=== PATIENT | male | born 1980 | race Caucasian/White ===

== ENCOUNTER 2016-12-09 03:03 | Emergency (ER) | payer OTHER ==
--- NOTE | 2016-12-09 05:29 | ED ORDER SUMMARY ---
..... Patient: DUANE GREENE OrderSheet [facility] VisitID: [id number] [place] [address] 36y, M Registration Date/Time: 12/09/2016 ORDER SHEET Weight: 74.8 kg (stated) Allergies: No Known Drug Allergy GENERAL ORDERS: UA-Culture if indicated Urgent (03:30 12/09/2016 DDavis R.N. per protocol) (Ack 3:32 CHagerty ER Truck Headlight Assembler) (3:40 DDavis R.N.) CMP Urgent (03:30 12/09/2016 DDavis R.N. per protocol) (Ack 3:32 CHagerty ER Truck Headlight Assembler) (3:40 DDavis R.N.) CBC w Diff Urgent (03:30 12/09/2016 DDavis R.N. per protocol) (Ack 3:32 CHagerty [facility] Truck Headlight Assembler) (3:40 DDavis R.N.) CT Abd/Pel wo Cont Urgent (03:42 12/09/2016 Georgie ELY) (Ack 3:48 [facility]agerty ER Truck Headlight Assembler) (3:56 RFay) MEDICATION ORDERS: IV FLUIDS: IV Saline Lock (03:30 12/09/2016 DDavis R.N. per protocol) (3:40 DDavis R.N.) Dilaudid IV 1 mg (NOW) (03:42 12/09/2016 Georgie ELY) (3:54 DDavis R.N.) Zofran IV 4 mg (NOW) (03:42 12/09/2016 Georgie ELY) (3:53 DDavis R.N.) Toradol IV 30 mg (NOW) (03:42 12/09/2016 Georgie ELY) (3:53 DDavis R.N.) IV NS : initial bolus 1000 mL (1000 mL/hr), then none - (NOW) (04:40 12/09/2016 Georgie ELY) (4:45 DDavis R.N.) ORDER SHEET NOTES: [Electronically signed by Pop Neri R.N. (05:29 12/09/2016)] [Electronically locked/signed by Pop Neri R.N. (05:29 12/09/2016)]
--- NOTE | 2016-12-09 05:29 | ED NURSING NOTES ---
Clinical Report - Nurses [facility] [place] [address] 12/09/2016 3:06 Patient: DUANE GREENE TRIAGE Triage time 03:23. Acuity: LEVEL 3. Chief Complaint: ABDOMINAL PAIN and NAUSEA. Alert. MADELAINE COMA SCORE: [place] Coma Scale: 15- eyes open spontaneously (4); best verbal response- oriented x 4 (5); best motor response- obeys commands (6). --03:27 Pop Neri R.N. 03:23 12/09/16. BP: 152/99. HR: 61 (regular). RR: 16 (regular and unlabored). O2 saturation: 100% on room air. Temp: 98.3 F (oral). Pain level now: 06/04. --03:27 Pop Neri R.N. Weight: 74.8 kg stated. Height/Length: 66 inches Per Patient. BMI: 26.6. --03:24 Pop Neri R.N. Medications None. --03:23 Pop Neri R.N. Allergies No Known Drug Allergy. --03:23 Pop Neri R.N. History Arrived by private vehicle. Historian: patient. Accompanied by family. This started today. Onset. (0000). SOCIAL HX: Never smoker. Occasional alcohol use. No drug use. ( denies SI/HI). SELF HARM ASSESSMENT: A self harm assessment was performed. The patient answered "no" to the question "Do you have thoughts of harming or killing yourself?" and "Are you here because you tried to hurt yourself?". FALL RISK ASSESSMENT: Fall risk assessment completed. No fall risk identified. NUTRITIONAL RISK ASSESSMENT: The nutritional risk assessment revealed no deficiencies. FUNCTIONAL ASSESSMENT: Functional assessment: no impairments noted. LEARNING NEEDS ASSESSMENT: The learning needs assessment revealed no barriers. SKIN INTEGRITY ASSESSMENT: Skin integrity risk assessment completed. No skin integrity risk identified. --03:27 Pop Neri R.N. PROBLEMS: no known problems. ADDITIONAL SURGERIES: no known surgeries. Interventions ID band on patient. To treatment room. --03:27 Pop Neri R.N. PHYSICAL ASSESSMENT Ambulatory to room. GENERAL / NEURO / PSYCH: Alert. Oriented X 4. HEENT: Mucous membranes are pink. RESPIRATORY: Respirations not labored. Breath sounds within normal limits. CVS: Normal sinus rhythm noted. Capillary refill less than 2 seconds. GI / : Abdomen soft. Abdominal tenderness. Bowel sounds within normal limits. ( Last BM "around midnight"). SKIN: Skin is warm and dry. --03:29 Pop Neri R.N. NURSING PROGRESS NOTES Patient gowned. Head of bed elevated. Two patient identifiers checked. Call light placed in reach. Side rails up x 1. Bed placed in lowest position. Brakes of bed on. Patient ready for evaluation- chart flagged. Patient waiting for evaluation. --03:28 Pop Neri R.N. 03:31 12/09/2016 Site #1 started via IV in the left antecubital space with an 20g angiocath, with aseptic technique and good blood return; one attempt. Blood drawn: rainbow set. Labeled in the presence of the patient and sent to the lab. Saline lock flushed with 10 mL saline. --03:40 Pop Neri R.N. 03:48 12/09/2016 Zofran (Ondansetron HCl) IVP 4 mg given over 1 minute(s) via site #1. Allergies verified and confirmed 5 rights. IV patency established. IV site checked: no pain, redness, or swelling. IV flushed thoroughly pre- and post-medication administration. IVP given by RN. --03:53 Pop Neri R.N. 03:50 12/09/2016 Toradol IVP 30 mg given over 1 minute(s) via site #1. Allergies verified and confirmed 5 rights. IV patency established. IV site checked: no pain, redness, or swelling. IV flushed thoroughly pre- and post-medication administration. IVP given by RN. --03:53 Pop Neri R.N. 03:52 12/09/2016 Dilaudid (HYDROmorphone HCl PF) IVP 1 mg given over 2 minute(s) via site #1. Allergies verified, confirmed 5 rights and sedative warning given to the patient and patient's metal products viewer. IV patency established. IV site checked: no pain, redness, or swelling. IV flushed thoroughly pre- and post-medication administration. IVP given by RN. --03:54 Pop Neri R.N. ( Patient states that the medicine is helping and he feels pain relief). --03:54 Pop Neri R.N. 04:44 12/09/2016 Started bag #1 1000 mL IV Fluids IV NS (Saline); at 1000 mL/hr over 1 hour(s) via site #1. Allergies verified and confirmed 5 rights. IV patency established. IV site checked: no pain, redness, or swelling. IV flushed thoroughly pre- and post-medication administration. Completed per protocol. --04:45 Pop Neri R.N. ( Dr. Valles discussed results and disposition with patient.). --04:46 Pop Neri R.N. 05:26 12/09/2016 Site #1 removed upon discharge. Manual pressure and bandage applied. --05:26 Pop Neri R.N. 05:26 12/09/2016 IV Fluids IV NS Discontinued: bag #1 completed. Total amount infused: 1000 mL. IV patency established. IV site checked: no pain, redness, or swelling. IV flushed thoroughly. --05:26 Pop Neri R.N. DISPOSITION / DISCHARGE Departure time: 05:27. Condition at departure: stable. No learning barriers present. Discharge instructions provided and reviewed with the patient. Reviewed warnings. Reviewed medication(s) side effects, precautions, dosing and course information. Prescription(s) given to the patient. Treatments reviewed. Reviewed referrals for followup. Work note given. Patient and spouse verbalized understanding. Written instructions provided in Greenlandic. The patient was discharged home and accompanied by spouse. He left the Emergency Department ambulatory and via private vehicle. Spouse driving. --05:28 Pop Neir R.N. 05:26 12/09/16. BP: 118/67 taken while lying. HR: 70. RR: 16 (regular and unlabored). O2 saturation: 100% on room air. Pain level now: 10/05. --05:28 Daron, Pop, R.N. Locked/Released at 12/09/2016 5:29 by Pop Neri R.N.
--- NOTE | 2016-12-09 05:29 | ED CLINICAL REPORT ---
Clinical Report - Physicians/Mid Levels [facility] [address] [place] [address] 12/09/2016 3:06 Patient: DUANE GREENE Time Seen: 03:39 Apr 2016. Arrived- By private vehicle. Historian- patient. CPT: ER phys charges level 4 (#194055). HISTORY OF PRESENT ILLNESS Chief Complaint: ABDOMINAL PAIN. It is described as "pain" and it is described as located in the right lower quadrant and right pelvis. At its maximum, severity described as moderate. When seen in the E.D., severity described as moderate. Modifying factors. Not worsened by anything. Not relieved by anything. 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 The patient has had nausea. No loss of appetite, vomiting or diarrhea. No recent travel. Similar symptoms previously: None. Recent medical care: The patient was seen recently at another facility in the emergency department (2 days ago). Seen for similar symptoms. Evaluation/treatment: sonogram. Diagnosis: unknown. REVIEW OF SYSTEMS No constipation, black stools, hematemesis, difficulty with urination or pain with urination. No urinary frequency, fever, sore throat, chest pain or difficulty breathing. No cough, joint pain, skin rash or chills. All systems otherwise negative, except as recorded above. PAST HISTORY See nurses notes. Problems: no known problems. Additional Surgeries: no known surgeries. Medications: None. Allergies: No Known Drug Allergy. SOCIAL HISTORY Never smoker. Occasional alcohol use. No drug use. ADDITIONAL NOTES The nursing notes have been reviewed. PHYSICAL EXAM Vital Signs: 12/09/2016 03:23 BP: 152/99. HR: 61. RR: 16. O2 saturation: 100%. Temp: 98.3 F. Pain level now: 06/04. Appearance: Alert. Appears to be in pain. Patient in moderate distress. Eyes: Eyes normal inspection. ENT: Pharynx normal. Neck: Normal inspection. CVS: Normal heart rate and rhythm. Heart sounds normal. Pulses normal. Respiratory: No respiratory distress. Breath sounds normal. Chest nontender. Abdomen: Soft and nontender. Bowel sounds normal. Back: Normal inspection. No CVA tenderness. Skin: Skin warm. Normal skin color. No rash. Extremities: Extremities exhibit normal ROM. No lower extremity edema. Neuro: Oriented X 3. No motor deficit. No sensory deficit. LABS, X-RAYS, AND EKG Abdominal CT: A urinary calculus is present (4 mm). Hydronephrosis. Abdominal CT performed without contrast. The study was interpreted by the radiologist and discussed with the radiologist. Laboratory Tests: UA-Culture if indicated: (JOSE: 12/09/2016 03:35) ( MsgRcvd 12/09/2016 03:52) Final results Test Result Flag Units (Reference) URINE COLOR YELLOW URINE APPEARANCE CLEAR URINE GLUCOSE NEGATIVE (NEGATIVE) URINE BILIRUBIN NEGATIVE (NEGATIVE) URINE KETONE 2+ (NEGATIVE) URINE SPECIFIC GRAVITY 1.025 (1.010-1.030) URINE PH 6.5 (5.0-8.0) URINE PROTEIN 1+ (NEGATIVE) URINE UROBILINOGEN 1.0 EU/dL (0.2-1.0) URINE NITRITE NEGATIVE (NEGATIVE) URINE BLOOD 3+ (NEGATIVE) URINE LEUK ESTERASE NEGATIVE (NEGATIVE) URINE RBC >100 rbc/hpf (0-1) URINE WBC 1-3 wbc/hpf (0-1) URINE EPITHELIAL CELLS 1-3 EPI/hpf (0-5) URINE BACTERIA NONE SEEN (NONE SEEN) URINE COMMENT CULT NOT INDICATED URINE CULTURES ARE SET-UP BASED ON THE FOLLOWING CRITERIA:POSITIVE NITRITEPOSITIVE LEUKOCYTE ESTERASEGREATER THAN 10 WHITE BLOOD CELLSMODERATE (2+) OR GREATER BACTERIA CBC w Diff: (JOSE: 12/09/2016 03:35) ( [facility] [place] 12/09/2016 03:48) Final results Test Result Flag Units (Reference) WHITE BLOOD COUNT 10.3 K/uL (4.5-11.5) RED BLOOD COUNT 4.79 M/uL (4.50-5.90) HEMOGLOBIN 14.9 gm/dL (13.5-17.5) HEMATOCRIT 45.0 % (41.0-53.0) MEAN CELL VOLUME 94 fL (80-100) MEAN CORPUSCULAR HGB 31 pg (26-34) MEAN CORPUSCULAR HGB CONC 33 g/dL (31-37) RED CELL DISTRIBUTION WIDTH 14.5 % (11.6-14.8) PLATELET COUNT 253 K/uL (150-400) NEUTROPHIL % 77.2 H % (50-75) LYMPH % 16.3 L % (25-40) MONO % 5.2 % (3-14) EOSINOPHIL % 0.9 % (0-4) BASOPHIL % 0.4 % (0-2) CMP: (JOSE: 12/09/2016 03:35) ( MsgRcvd 12/09/2016 03:59) Final results Test Result Flag Units (Reference) GLUCOSE 133 H mg/dL (70-110) BUN 20 H mg/dL (7-18) CREATININE 1.5 H mg/dL (0.6-1.3) Estimated GFR 55.97 mL/min Estimated GFR- >60 mL/min Note: Persistent reduction over 3 months in eGFR<60 mL/min/1.73 m2 defines CKD. Patients with eGFR values>=60 mL/min/1.73 m2 may also have CKD if evidence ofpersistent proteinuria. Additional information may be foundat www.kidney.org. SODIUM 144 mmol/L (136-145) POTASSIUM 4.3 mmol/L (3.5-5.1) CHLORIDE 105 mmol/L (98-107) CARBON DIOXIDE 26 mmol/L (21-32) CALCIUM 9.1 mg/dL (8.5-10.1) TOTAL PROTEIN 7.2 g/dL (6.4-8.2) ALBUMIN 3.9 g/dL (3.3-5.0) BILIRUBIN, TOTAL 0.6 mg/dL (0.0-1.0) ALKALINE PHOSPHATASE 61 U/L (46-116) AST (SGOT) 19 U/L (15-37) ALT (SGPT) 27 U/L (12-78) . PROGRESS AND PROCEDURES Course of Care: IV NS Dilaudid 1mg IV Zofran 4 mg IV Toradol 30 mg IV. Patient/family counseled. Disposition: Discharged. Condition: stable and improved. CLINICAL IMPRESSION Ureterolithiasis (single stone) in the right ureter with renal colic, hydronephrosis and hematuria. INSTRUCTIONS Do not work for two days until better. Drink plenty of fluids. (strain urine for stone.). Warnings: Further evaluation is necessary. SEDATIVE MEDICATION: You were given sedative medication during your visit. Do not drive or operate dangerous machinery. GENERAL WARNINGS: Return or contact your physician immediately if your condition worsens or changes unexpectedly, if not improving as expected, or if other problems arise. Prescription Medications: Zofran (orally disintegrating tablets) 4 mg: take 1 orally every 6 hours as needed for nausea. Dispense ten (10). No refill. Oxycodone/APAP 5 mg/325 mg: take 1-2 tablets orally every 4 hours as needed for pain. Dispense twenty (20). No refill. Flomax 0.4 mg: take 1 orally every 24 hours. Dispense five (5). No refills. Follow-up: Follow up with your doctor in one week. Call for an appointment. Understanding of the discharge instructions verbalized by patient. (Electronically signed by Darien Valles MD 12/12/2016 20:35)
--- NOTE | 2016-12-09 05:29 | ED ORDER SUMMARY ---
..... Patient: DUANE GREENE OrderSheet [facility] VisitID: [id number] [place] [address] 36y, M Registration Date/Time: 12/09/2016 ORDER SHEET Weight: 74.8 kg (stated) Allergies: No Known Drug Allergy GENERAL ORDERS: UA-Culture if indicated Urgent (03:30 12/09/2016 DDavis R.N. per protocol) (Ack 3:32 CHagerty ER Ancillary Services Manager) (3:40 DDavis R.N.) CMP Urgent (03:30 12/09/2016 DDavis R.N. per protocol) (Ack 3:32 CHagerty ER Ancillary Services Manager) (3:40 DDavis R.N.) CBC w Diff Urgent (03:30 12/09/2016 DDavis R.N. per protocol) (Ack 3:32 CHagerty ER Ancillary Services Manager) (3:40 DDavis R.N.) CT Abd/Pel wo Cont Urgent (03:42 12/09/2016 Georgie ELY) (Ack 3:48 CHagerty ER Ancillary Services Manager) (3:56 RFay) MEDICATION ORDERS: IV FLUIDS: IV Saline Lock (03:30 12/09/2016 DDavis R.N. per protocol) (3:40 DDavis R.N.) Dilaudid IV 1 mg (NOW) (03:42 12/09/2016 Georgie ELY) (3:54 DDavis R.N.) Zofran IV 4 mg (NOW) (03:42 12/09/2016 Georgie ELY) (3:53 DDavis R.N.) Toradol IV 30 mg (NOW) (03:42 12/09/2016 Georgie ELY) (3:53 DDavis R.N.) IV NS : initial bolus 1000 mL (1000 mL/hr), then none - (NOW) (04:40 12/09/2016 Georgie ELY) (4:45 DDavis R.N.) ORDER SHEET NOTES: [Electronically signed by Pop Neri R.N. (05:29 12/09/2016)] [Electronically locked/signed by Pop Neri R.N. (05:29 12/09/2016)]
--- NOTE | 2016-12-09 07:27 | DIAGNOSTIC IMAGING REPORT ---
PROCEDURE: CT ABDOMEN/PELVIS W/O CONTRAST INDICATION: Abdominal and right flank pain. TECHNIQUE: Noncontrast axial images with sagittal and coronal reformations. Preliminary report provided by Britany Victor MD ([facility]). COMPARISON: None. FINDINGS: ABDOMEN: There is moderate right hydronephrosis and hydroureter secondary to a 4 mm calculus located in the distal third of the right ureter. There are 5 mm and 0.5 mm nonobstructing right renal calculi. There are multiple (five to six) nonobstructing left renal calculi (0.5 mm, 1 mm, 2 mm). Left kidney and ureter are otherwise normal. Findings suggest probable medullary sponge kidney Gallbladder, liver, spleen, pancreas, and aorta are normal. Bowel pattern is normal, including appendix. PELVIS: Pelvic structures are normal. IMPRESSION: 1. There is moderate right hydronephrosis secondary to a 4 mm distal ureteral calculus. 2. There are two nonobstructing right renal calculi (0.5 mm and 5 mm). 3. There are five to six nonobstructing left renal calculi (largest 2 mm). 4. Findings suggest medullary sponge kidney. 5. Otherwise negative CT abdomen and pelvis. All CT scans at this facility use dose modulation, iterative reconstruction, and/or weight-based dosing when appropriate to reduce radiation dose to as low as reasonably achievable.
--- NOTE | 2016-12-12 20:35 | ED MAR SUMMARY ---
..... Medication Administration Record [facility] [address] [place] [address] Patient: DUANE GREENE Visit ID: [id number] 36y, M Weight: 74.8 kg Height/Length: 66 in BMI: 26.6 ALLERGIES: No Known Drug Allergy Given 03:48 12/09/2016 Pop Neri R.N. Medication Administered: ZOFRAN [IVP] (ONDANSETRON HCL), Dose: 4 mg IVP over 1 minute(s), Site: #1 left AC. Medication Ordered: Zofran IV 4 mg (NOW). Given 03:50 12/09/2016 Pop Neri R.N. Medication Administered: TORADOL [IVP], Dose: 30 mg IVP over 1 minute(s), Site: #1 left AC. Medication Ordered: Toradol IV 30 mg (NOW). Given 03:52 12/09/2016 Pop Neri R.N. Medication Administered: DILAUDID [IVP] (HYDROMORPHONE HCL PF), Dose: 1 mg IVP over 2 minute(s), Site: #1 left AC. Medication Ordered: Dilaudid IV 1 mg (NOW). Start 04:44 12/09/2016 Pop Neri R.N., Stop 05:26 12/09/2016 Pop Neri R.N. Medication Administered: IV NS (SALINE), Dose: IV Fluids over 1 hour(s), Rate: 1000 mL/hr, Dispensed: 1000 mL bag, Site: #1 left AC. Medication Ordered: IV NS : initial bolus 1000 mL (1000 mL/hr), then none - (NOW).
--- NOTE | 2016-12-12 20:35 | ED MED RECONCILIATION SUMMARY ---
Patient: DUANE GREENE Medication Reconciliation Report [facility] VisitID: [id number] [place] [address] 36y, M Registration Date/Time: 12/09/2016 Weight: 74.8 kg Height/Length: 66 in. BMI: 26.6 ALLERGIES: No Known Drug Allergy The patient's Home Medications are listed below: NONE. The source(s) of the original Home Medication information: Not obtained. The following Medications were given to the patient in the Emergency Department: Zofran [IVP] IVP 4 mg, administered: 12/09/2016 3:48:00 AM Toradol [IVP] IVP 30 mg, administered: 12/09/2016 3:50:00 AM Dilaudid [IVP] IVP 1 mg, administered: 12/09/2016 3:52:00 AM IV NS IV Fluids bolus 0, then 1000 mL/hr, administered: 12/09/2016 4:44:00 AM The following Medications were prescribed to the patient: Zofran (orally disintegrating tablets) 4 mg: take 1 orally every 6 hours as needed for nausea. Dispense ten (10). No refill. -- Darien Valles MD Oxycodone/APAP 5 mg/325 mg: take 1-2 tablets orally every 4 hours as needed for pain. Dispense twenty (20). No refill. -- Darien Valles MD Flomax 0.4 mg: take 1 orally every 24 hours. Dispense five (5). No refills. -- Darien Valles MD
--- NOTE | 2016-12-12 20:35 | ED MAR SUMMARY ---
..... Medication Administration Record [facility] [address] [place] [address] Patient: DUANE GREENE Visit ID: [id number] 36y, M Weight: 74.8 kg Height/Length: 66 in BMI: 26.6 ALLERGIES: No Known Drug Allergy Given 03:48 12/09/2016 Pop Neri R.N. Medication Administered: ZOFRAN [IVP] (ONDANSETRON HCL), Dose: 4 mg IVP over 1 minute(s), Site: #1 left AC. Medication Ordered: Zofran IV 4 mg (NOW). Given 03:50 12/09/2016 Pop Neri R.N. Medication Administered: TORADOL [IVP], Dose: 30 mg IVP over 1 minute(s), Site: #1 left AC. Medication Ordered: Toradol IV 30 mg (NOW). Given 03:52 12/09/2016 Pop Neri R.N. Medication Administered: DILAUDID [IVP] (HYDROMORPHONE HCL PF), Dose: 1 mg IVP over 2 minute(s), Site: #1 left AC. Medication Ordered: Dilaudid IV 1 mg (NOW). Start 04:44 12/09/2016 Pop Neri R.N., Stop 05:26 12/09/2016 Pop Neri R.N. Medication Administered: IV NS (SALINE), Dose: IV Fluids over 1 hour(s), Rate: 1000 mL/hr, Dispensed: 1000 mL bag, Site: #1 left AC. Medication Ordered: IV NS : initial bolus 1000 mL (1000 mL/hr), then none - (NOW).
--- NOTE | 2016-12-12 20:35 | ED MED RECONCILIATION SUMMARY ---
Patient: DUANE GREENE Medication Reconciliation Report [facility] VisitID: [id number] [place] [address] 36y, M Registration Date/Time: 12/09/2016 Weight: 74.8 kg Height/Length: 66 in. BMI: 26.6 ALLERGIES: No Known Drug Allergy The patient's Home Medications are listed below: NONE. The source(s) of the original Home Medication information: Not obtained. The following Medications were given to the patient in the Emergency Department: Zofran [IVP] IVP 4 mg, administered: 12/09/2016 3:48:00 AM Toradol [IVP] IVP 30 mg, administered: 12/09/2016 3:50:00 AM Dilaudid [IVP] IVP 1 mg, administered: 12/09/2016 3:52:00 AM IV NS IV Fluids bolus 0, then 1000 mL/hr, administered: 12/09/2016 4:44:00 AM The following Medications were prescribed to the patient: Zofran (orally disintegrating tablets) 4 mg: take 1 orally every 6 hours as needed for nausea. Dispense ten (10). No refill. -- Darien Vlales MD Oxycodone/APAP 5 mg/325 mg: take 1-2 tablets orally every 4 hours as needed for pain. Dispense twenty (20). No refill. -- Darien Valles MD Flomax 0.4 mg: take 1 orally every 24 hours. Dispense five (5). No refills. -- Darien Valles MD
--- NOTE | 2016-12-12 20:35 | ED DISCHARGE INSTRUCTIONS ---
Patient: DUANE GREENE General Instructions [facility] VisitID: [id number] [place] [address] 36y, M Registration Date/Time: 12/09/2016 Ureterolithiasis (single stone) in the right ureter with renal colic, hydronephrosis and hematuria. INSTRUCTIONS Do not work for two days until better. Drink plenty of fluids. (strain urine for stone.). Warnings: Further evaluation is necessary. SEDATIVE MEDICATION: You were given sedative medication during your visit. Do not drive or operate dangerous machinery. GENERAL WARNINGS: Return or contact your physician immediately if your condition worsens or changes unexpectedly, if not improving as expected, or if other problems arise. Prescription Medications: Zofran (orally disintegrating tablets) 4 mg: take 1 orally every 6 hours as needed for nausea. Dispense ten (10). No refill. Oxycodone/APAP 5 mg/325 mg: take 1-2 tablets orally every 4 hours as needed for pain. Dispense twenty (20). No refill. Flomax 0.4 mg: take 1 orally every 24 hours. Dispense five (5). No refills. Follow-up: Follow up with your doctor in one week. Call for an appointment. Understanding of the discharge instructions verbalized by patient. ADDITIONAL INFORMATION Kidney Stone (W/ Colic) The sharp cramping pain and nausea/vomiting that you have is due to a small stone which has formed in the kidney and is now passing down a narrow tube (ureter) on its way to your bladder. Once it reaches your bladder, the pain will stop. The stone may pass in your urine stream in one piece. [The size may be 1/16" to 1/4" (1-6mm)]. Or, the stone may also break up into jorge fragments which you may not even notice. Once you have had a kidney stone, you are at risk for developing another one in the future. Home Care: Drink plenty of fluids (at least 8 to 10 glasses of water a day). Most stones will pass on their own, but may take from a few hours to a few days. Sometimes the stone is too large to pass by itself and special methods will have to be used to remove the stone. Each time you urinate, do so in a jar. Pour the urine from the jar through the strainer and into the toilet. Continue doing this until 24 hours after your pain stops. By then, if there was a kidney stone, it should pass from your bladder. Some stones dissolve into sand-like particles and pass right through the strainer. In that case, you wont ever see a stone. Save any stone that you find in the strainer and bring it to your doctor for analysis. It may be possible to prevent certain types of stones from forming. Therefore, it is important to know what kind of stone you have. Try to stay as active as possible since this will help the stone pass. Do not stay in bed unless your pain prevents you from getting up. You may notice a red, pink or brown color to your urine. This is normal while passing a kidney stone. Follow Up with your doctor or return to this facility if the pain lasts more than 48 hours. Get Prompt Medical Attention if any of the following occur: Pain that is not controlled by the medicine given Repeated vomiting or unable to keep down fluids Weakness, dizziness or fainting Fever of 100.4F (38C) or higher, or as directed by your healthcare provider Passage of solid red or brown urine (can't see through it) or urine with lots of blood clots Unable to pass urine for 8 hours and increasing bladder pressure Ondansetron Oral disintegrating tablet What is this medicine? ONDANSETRON (on KERVIN se marian) is used to treat nausea and vomiting caused by chemotherapy. It is also used to prevent or treat nausea and vomiting after surgery. How should I use this medicine? These tablets are made to dissolve in the mouth. Do not try to push the tablet through the foil backing. With dry hands, peel away the foil backing and gently remove the tablet. Place the tablet in the mouth and allow it to dissolve, then swallow. While you may take these tablets with water, it is not necessary to do so. Talk to your ultrasonic tester regarding the use of this medicine in children. Special care may be needed. What side effects may I notice from receiving this medicine? Side effects that you should report to your doctor or health administrator health care facility as soon as possible: allergic reactions like skin rash, itching or hives, swelling of the face, lips, or tongue breathing problems dizziness fast or irregular heartbeat feeling faint or lightheaded, falls fever and chills swelling of the hands and feet tightness in the chest Side effects that usually do not require medical attention (report to your doctor or health administrator health care facility if they continue or are bothersome): constipation or diarrhea headache What may interact with this medicine? Do not take this medicine with any of the following medications: -apomorphine -cisapride -dofetilide -dronedarone -pimozide -thioridazine -ziprasidone This medicine may also interact with the following medications: -carbamazepine -phenytoin -rifampicin -tramadol -other medicines that prolong the QT interval (cause an abnormal heart rhythm) What if I miss a dose? If you miss a dose, take it as soon as you can. If it is almost time for your next dose, take only that dose. Do not take double or extra doses. Where should I keep my medicine? Keep out of the reach of children. Store between 2 and 30 degrees C (36 and 86 degrees F). Throw away any unused medicine after the expiration date. What should I tell my health care provider before I take this medicine? They need to know if you have any of these conditions: heart disease history of irregular heartbeat liver disease low levels of magnesium or potassium in the blood an unusual or allergic reaction to ondansetron, granisetron, other medicines, foods, dyes, or preservatives or trying to get breast-feeding What should I watch for while using this medicine? Check with your doctor or health administrator health care facility as soon as you can if you have any sign of an allergic reaction. Oxycodone Hydrochloride, Acetaminophen Oral tablet What is this medicine? ACETAMINOPHEN; OXYCODONE (a set a GABE allison fen; ox i KOE done) is a pain reliever. It is used to treat mild to moderate pain. How should I use this medicine? Take this medicine by mouth with a full glass of water. Follow the directions on the prescription label. Take your medicine at regular intervals. Do not take your medicine more often than directed. Talk to your ultrasonic tester regarding the use of this medicine in children. Special care may be needed. Patients over 65 years old may have a stronger reaction and need a smaller dose. What side effects may I notice from receiving this medicine? Side effects that you should report to your doctor or health administrator health care facility as soon as possible: allergic reactions like skin rash, itching or hives, swelling of the face, lips, or tongue breathing difficulties, wheezing confusion light headedness or fainting spells severe stomach pain yellowing of the skin or the whites of the eyes Side effects that usually do not require medical attention (report to your doctor or health administrator health care facility if they continue or are bothersome): dizziness drowsiness nausea vomiting What may interact with this medicine? alcohol antihistamines barbiturates like amobarbital, butalbital, butabarbital, methohexital, pentobarbital, phenobarbital, thiopental, and secobarbital benztropine drugs for bladder problems like solifenacin, trospium, oxybutynin, tolterodine, hyoscyamine, and methscopolamine drugs for breathing problems like ipratropium and tiotropium drugs for certain stomach or intestine problems like propantheline, homatropine methylbromide, glycopyrrolate, atropine, belladonna, and dicyclomine general anesthetics like etomidate, ketamine, nitrous oxide, propofol, desflurane, enflurane, halothane, isoflurane, and sevoflurane medicines for depression, anxiety, or psychotic disturbances medicines for sleep muscle relaxants naltrexone narcotic medicines (opiates) for pain phenothiazines like perphenazine, thioridazine, chlorpromazine, mesoridazine, fluphenazine, prochlorperazine, promazine, and trifluoperazine scopolamine tramadol trihexyphenidyl What if I miss a dose? If you miss a dose, take it as soon as you can. If it is almost time for your next dose, take only that dose. Do not take double or extra doses. Where should I keep my medicine? Keep out of the reach of children. This medicine can be abused. Keep your medicine in a safe place to protect it from theft. Do not share this medicine with anyone. Selling or giving away this medicine is dangerous and against the law. Store at room temperature between 20 and 25 degrees C (68 and 77 degrees F). Keep container tightly closed. Protect from light. This medicine may cause accidental overdose and if it is taken by other adults, children, or pets. Flush any unused medicine down the toilet to reduce the chance of harm. Do not use the medicine after the expiration date. What should I tell my health care provider before I take this medicine? They need to know if you have any of these conditions: brain tumor Crohn's disease, inflammatory bowel disease, or ulcerative colitis drink more than 3 alcohol containing drinks per day drug abuse or addiction head injury heart or circulation problems kidney disease or problems going to the bathroom liver disease lung disease, asthma, or breathing problems an unusual or allergic reaction to acetaminophen, oxycodone, other opioid analgesics, other medicines, foods, dyes, or preservatives or trying to get breast-feeding What should I watch for while using this medicine? Tell your doctor or health administrator health care facility if your pain does not go away, if it gets worse, or if you have new or a different type of pain. You may develop tolerance to the medicine. Tolerance means that you will need a higher dose of the medication for pain relief. Tolerance is normal and is expected if you take this medicine for a long time. Do not suddenly stop taking your medicine because you may develop a severe reaction. Your body becomes used to the medicine. This does NOT mean you are addicted. Addiction is a behavior related to getting and using a drug for a non-medical reason. If you have pain, you have a medical reason to take pain medicine. Your doctor will tell you how much medicine to take. If your doctor wants you to stop the medicine, the dose will be slowly lowered over time to avoid any side effects. You may get drowsy or dizzy. Do not drive, use machinery, or do anything that needs mental alertness until you know how this medicine affects you. Do not stand or sit up quickly, especially if you are an older patient. This reduces the risk of dizzy or fainting spells. Alcohol may interfere with the effect of this medicine. Avoid alcoholic drinks. There are different types of narcotic medicines (opiates) for pain. If you take more than one type at the same time, you may have more side effects. Give your health care provider a list of all medicines you use. Your doctor will tell you how much medicine to take. Do not take more medicine than directed. Call emergency for help if you have problems breathing. The medicine will cause constipation. Try to have a bowel movement at least every 2 to 3 days. If you do not have a bowel movement for 3 days, call your doctor or health administrator health care facility. Do not take Tylenol (acetaminophen) or medicines that have acetaminophen with this medicine. Too much acetaminophen can be very dangerous. Many nonprescription medicines contain acetaminophen. Always read the labels carefully to avoid taking more acetaminophen. You have been given the following additional information: Kidney Stone W/ Colic Ondansetron Oral disintegrating tablet Oxycodone Hydrochloride, Acetaminophen Oral tablet Do not work for two days until better. (Electronically signed by Darien Valles MD 12/12/2016 20:35)
== END 2016-12-09 05:29 | disposition home or self-care (01) ==
LOC: ED SRH 03:03
DX: N13.2 Hydronephrosis with renal and ureteral calculous obstruction (principal); R31.9 Hematuria, unspecified
CPT/HCPCS: 90004; 90100; 95059